=== PATIENT | female | born 1985 | race Two or more races ===

== ENCOUNTER 2017-04-11 17:26 | Emergency (ER) | payer MEDICARE, OTHER ==
[~2017-04-11] VITALS: Ht 157.5 cm; Wt 84.8 kg
== END 2017-04-11 20:07 | disposition home or self-care (01) ==
LOC: ED 17:26
DX: Z00.8 Encounter for other general examination (principal); F32.9 Major depressive disorder, single episode, unspecified; F15.10 Other stimulant abuse, uncomplicated; R21 Rash and other nonspecific skin eruption; R00.0 Tachycardia, unspecified; F17.200 Nicotine dependence, unspecified, uncomplicated; F90.1 Attention-deficit hyperactivity disorder, predominantly hyperactive type; Z88.5 Allergy status to narcotic agent; Z79.899 Other long term (current) drug therapy
CPT/HCPCS: 80053; 80176; 81001; 84443; 84703; 85025; 87088; 99283; G0480